=== PATIENT | male | born 1990 | race Caucasian/White ===

== ENCOUNTER 2024-09-10 15:30 | Emergency (ER) | payer OTHER ==
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
[2024-09-10 17:27] VITALS: TEMP 97.8
[2024-09-10 17:29] VITALS: BP 138/85; O2SAT 100
== END 2024-09-10 17:24 | disposition home or self-care (01) ==
LOC: ER 15:30
DX: M79.641 Pain in right hand (principal); M54.9 Dorsalgia, unspecified; V49.40XA Driver injured in collision with unspecified motor vehicles in traffic accident, initial encounter
CPT/HCPCS: 72125; 72128; 72131; 99282